=== PATIENT | male | born 1990 | race African-American/Black ===

== ENCOUNTER 2018-11-11 11:57 | Emergency (ER) | payer OTHER ==
[~2018-11-11] VITALS: Ht 180.3 cm; Wt 78.0 kg
[2018-11-11 12:51] LABS: ABSOLUTE NEUTROPHILS 1.8 thou/uL (1.4-8.2); BASOPHILS 0.7 % (0.0-2.0); EOSINOPHILS 0.7 % (0.0-3.0); HEMATOCRIT 44.2 % (42.0-52.0); HEMOGLOBIN 14.6 gm/dL (14.0-18.0); LYMPHOCYTES 50.2 % (24.0-44.0); MCH 27.3 pg (26.0-34.0); MCHC 33.1 g/dL (28.0-37.0); MCV 82.5 fL (80.0-100.0); MONOCYTES 10.8 % (1.0-8.0); PLATELET COUNT 265 thou/uL (150-400); POLYS 37.6 % (36.0-66.0); RBC 5.35 mil/uL (4.50-6.00); RDW 13.6 % (10.5-14.5); WBC 4.7 thou/uL (4.0-11.0)
[2018-11-11 12:55] LABS: CALCIUM 9.5 mg/dL (8.5-10.1); CREATININE 1.3 mg/dL (0.7-1.3); POTASSIUM 3.9 mmol/L (3.5-5.1)
[2018-11-11 13:01] LABS: ALBUMIN 3.9 g/dL (3.4-5.0); TOTAL BILIRUBIN 0.2 mg/dL (<0.1-1.0); TOTAL PROTEIN 8.6 g/dL (6.4-8.2)
[2018-11-11 16:36] LABS: URINE BILIRUBIN NEGATIVE (Negative); URINE BLOOD NEGATIVE (Negative); URINE CLARITY CLEAR; URINE COLOR YELLOW; URINE GLUCOSE-RANDOM* NEGATIVE (Negative); URINE KETONES 1+ (Negative); URINE LEUKOCYTES-REFLEX NEGATIVE (Negative); URINE NITRITE-REFLEX NEGATIVE (Negative); URINE PROTEIN (DIPSTICK) 1+ (Negative)
[2018-11-11 16:48] LABS: BACTERIA-REFLEX 1-9 Few /HPF (None Seen); CASTS None Seen /LPF (None Seen); CRYSTALS None Seen /LPF (None Seen); SQUAMOUS None Seen /LPF (0-3); URINE RBC None Seen /HPF (0-2); URINE WBC-REFLEX None Seen /HPF (0-5)
[2018-11-11] MEDS ORDERED: ULTRAM 50MG TAB50 MG PO (17:38)
[2018-11-11] MEDS ORDERED: PROTONIX40 MG PO (17:38)
[2018-11-11] MEDS ORDERED: CARAFATE 1 GM TA1 GM PO (17:38)
[2018-11-11] MEDS ORDERED: ZOFRAN ODT4 MG PO (17:38)
[2018-11-11 17:53] VITALS: BP 136/86
--- NOTE | 2018-11-12 07:52 | EKG ---
[address] [place] [place] [address] ELECTROCARDIOGRAM REPORT Name: MEDINA JOHNSTON Room #: DEP [facility] CAMPUSShengSheng#: [id number] ������������������ Admission: 11/11/18 ������������������ Attend Phys: Discharge: 11/11/18 ������������������ Date of : 88 Report #: [id number] ����������������������������������������������������������������� [id number] THIS REPORT FOR: //name// [facility] ED Test Date: 2018-11-11 Test Time: 13:23:35 Pat Name: MEDINA JOHNSTON Department: Room: Gender: M [employer] Operator: : 1990 Requested By: Vijay Mejia Order Number: [id number] MD: Luis Herrera Measurements Intervals [place] Rate: 52 P: 45 AK: 156 QRS: 51 QRSD: 78 T: 27 QT: 402 QTc: 374 Interpretive Statements Sinus bradycardia Early repolarization No previous ECG available for comparison Electronically Signed On 11-12-2018 7:52:41 CDT by Luis Herrera [email or web address] ��������������������������������������������� <ELECTRONICALLY SIGNED> ���������������������������������������� By: Luis Herrera MD, [facility] ��������������������������������������������� 11/12/18 [id number] 1323 Luis Herrera MD, FACC /EPI
== END 2018-11-11 18:04 | disposition home or self-care (01) ==
LOC: ER 11:57
PROVIDERS: Emergency Medicine
DX: R10.13 Epigastric pain (principal); R10.11 Right upper quadrant pain; R11.0 Nausea; M25.511 Pain in right shoulder